=== PATIENT | female | born 1970 ===

== ENCOUNTER 2021-02-07 15:03 | Emergency (ER) | payer OTHER ==
[~2021-02-07] VITALS: Ht 157.5 cm; Wt 78.0 kg
[2021-02-07] MEDS ORDERED: amLODIPine BESYLATE 5 MG TAB PO ONE (15:45)
[2021-02-07 16:02] LABS: Basophils # (auto) 0 10 ^3/uL (0-0.2); Basophils % (auto) 0.4 % (0.0-2.0); Eosinophils # (auto) 0.2 10 ^3/uL (0-0.8); Eosinophils % (auto) 2.4 % (0.0-7.0); Hematocrit 47.5 % (36.0-46.0); Hemoglobin 16.2 g/dL (12.2-16.2); Lymphocytes # (auto) 1.6 10 ^3/uL (0.4-5.4); Lymphocytes % (auto) 18.5 % (10.0-50.0); Mean Corpuscular Hemoglobin 28.5 pg (28.0-32.0); Mean Corpuscular Volume 83.8 fL (80.0-100.0); Monocytes # (auto) 0.7 10 ^3/uL (0-1.3); Monocytes % (auto) 7.7 % (0.0-12.0); Neutrophils # (auto) 6.1 10 ^3/uL (1.6-8.6); Nucleated Red Blood Cells % 0.1 %; Red Blood Cells 5.67 10^6/uL (4.0-5.20); Red Cell Distribution Width 13.3 % (11.8-14.3); White Blood Cell 8.6 10^3/uL (4.4-10.8)
[2021-02-07 16:20] LABS: Albumin 4.6 g/dL (3.4-5.0); Anion Gap 7 (5-15); Blood Urea Nitrogen 13 mg/dL (7-18); Calcium 9.4 mg/dL (8.5-10.1); Carbon Dioxide 29 mmol/L (21-32); Chloride 102 mmol/L (98-107); Glucose 117 mg/dL (74-106); Potassium 3.8 mmol/L (3.5-5.1); Sodium 138 mmol/L (136-145)
[2021-02-07 16:25] LABS: Alanine Aminotransferase 66 U/L (13-56); Alkaline Phosphatase 151 U/L (45-117); Aspartate Aminotransferase 28 U/L (15-37); Bilirubin, Total 1.4 mg/dL (0.2-1.0); GFR African American 81 mL/min; GFR Non-African American 67 mL/min; Total Protein 8.3 g/dL (6.4-8.2)
[2021-02-07 17:19] VITALS: BP 134/83
== END 2021-02-07 18:35 | disposition home or self-care (01) ==
LOC: ER 15:03
DX: I16.0 Hypertensive urgency (principal); Z88.6 Allergy status to analgesic agent
CPT/HCPCS: 36415; 80053; 84484; 85025; 93005